=== PATIENT | male | born 1965 | race Caucasian/White ===

== ENCOUNTER 2016-10-10 15:22 | Emergency (ER) | payer OTHER ==
[~2016-10-10] VITALS: Ht 175.3 cm; Wt 140.6 kg
[~2016-10-10 15:22] MED LIST: LOPRESSOR50 MG PO
[2016-10-10 15:25] VITALS: BP 158/62
--- NOTE | 2016-10-10 16:16 | NUR ---
Pt ambulated to bed 8.
--- NOTE | 2016-10-10 16:33 | NUR ---
50/M presents to the ED for evaluation of left shoulder pain while working. Pt states "I was lifting a very heavy door and trying to put it down and I heard something pop and I didn't want to drop the door so I put it down." Pt c/o aching, non radiating, constant, 2/10 pain. Pt has limited ROM d/t pain. Pt complains of worsening pain with abduction of left shouldler. Pt is AOX4, ambulatory with steady gait. VSS. Pt is calm and relaxed at this time. No visible signs of distress noted.
--- NOTE | 2016-10-10 16:35 | NUR ---
Note undone in EDM - 10/10/16 at 1641 by [facility] PATIENT PRESENTS TO ED WITH LEFT SHOULDER PAIN AFTER LIFTING UP DOOR. PT HEARD POPPING NOISE . PT STATES IT HAPPEN 1 HR 3O MINS AGO. DENIES N/V/D; SKIN IS PINK/WARM/DRY; AAOX4 WITH EVEN AND STEADY GAIT; LUNGS CLEAR BL; HR EVEN AND REGULAR; PT DENIES ANY FEVER, CP, SOB, OR COUGH AT THIS TIME; PATIENT STATES PAIN OF 10/10 AT THIS TIME;PT HAS A HX OF HTN.POSITIONED FOR COMFORT; HOB ELEVATED; BEDRAILS UP X2; BED DOWN. SAFETY PRECAUTION INSTITUTED. NEEDS ATTENDED.ER MADE AWARE OF PT STATUS.
--- NOTE | 2016-10-10 16:40 | NUR ---
I asked the patient if he wanted a Toradol injection for pain per Dr. Lund request and patient declined injection at this time. Patient states "No i'm okay. I'm good," Dr. Lund made aware.
--- NOTE | 2016-10-10 16:41 | NUR ---
PATIENT PRESENTS TO ED WITH LEFT SHOULDER PAIN AFTER LIFTING UP DOOR. PT HEARD POPPING NOISE . PT STATES IT HAPPEN 1 HR 3O MINS AGO. DENIES N/V/D; SKIN IS PINK/WARM/DRY; AAOX4 WITH EVEN AND STEADY GAIT; LUNGS CLEAR BL; HR EVEN AND REGULAR; PT DENIES ANY FEVER, CP, SOB, OR COUGH AT THIS TIME; PATIENT STATES PAIN 2/10 IF LEFT SHOULDER IS NOT BEING MOVE AND PAIN OF 10/10 IF SHOULDER IS MOVED;PT HAS A HX OF HTN.POSITIONED FOR COMFORT; HOB ELEVATED; BEDRAILS UP X2; BED DOWN. SAFETY PRECAUTION INSTITUTED. NEEDS ATTENDED.ER MD MADE AWARE OF PT STATUS.
--- NOTE | 2016-10-10 17:40 | NUR ---
PT IS SITTING ON BED COMFORTABLY. NO ACUTE DISTRESS NOTED AT THIS TIME.PT IS GETTING IMPATIENT BUT IN A CALM MANNER. EXPLAINED TO PT THAT ER DR IS BUSY RIGHT NOW DUE TO HIGH VOLUME OF PT. PT DEMONSTRATE UNDERSTANDING. OFFERERED SOME JUICE AND WATER. PT STATES "I'M GOOD".WILL CONTINUE TO MONITOR PT.
--- NOTE | 2016-10-10 18:09 | NUR ---
Patient being evaluated by physician at bedside.
--- NOTE | 2016-10-10 18:24 | NUR ---
Patient discharged with v/s stable. Written and verbal after care instructions explained. Patient verbalized understanding but refused to take discharge summary instruction with him . Pt is upset due to long waiting period in er. Expalined to Pt that the ER Dr is so busy because of high volume of pt to attend to.PT is calm.Ambulatory with steady gait. All questions addressed prior to discharge. Advised to follow up with PMD. advised Pt to put cold/ice compress on left shoulder for 15 to 20 mins for 2- 3 days and Pt agreed with it.
[2016-10-10 18:29] VITALS: BP 128/79
== END 2016-10-10 18:24 | disposition home or self-care (01) ==
LOC: MED 15:22
DX: S43.402A Unspecified sprain of left shoulder joint, initial encounter (principal); I10 Essential (primary) hypertension; X58.XXXA Exposure to other specified factors, initial encounter; Y93.89 Activity, other specified; Y92.89 Other specified places as the place of occurrence of the external cause; Y99.8 Other external cause status

== ENCOUNTER 2017-12-18 16:01 | Emergency (ER) | payer OTHER ==
[~2017-12-18] VITALS: Ht 175.3 cm; Wt 126.6 kg
[~2017-12-18 16:01] MED LIST changes: -LOPRESSOR50 MG PO; +METO-50 PO
[2017-12-18 16:08] VITALS: BP 131/75
[2017-12-18 17:58] LABS: BASOPHILS # (AUTO) 0.1 K/uL (0.00-0.22); BASOPHILS % (AUTO) 0.5 % (0.0-2.0); EOSINOPHILS # (AUTO) 0.1 K/uL (0-0.4); EOSINOPHILS % (AUTO) 1.2 % (0.0-4.0); HEMOGLOBIN 16.1 g/dL (12.0-18.0); LYMPHOCYTES # (AUTO) 1.7 K/uL (2.0-11.5); LYMPHOCYTES % (AUTO) 15.2 % (20.5-51.1); MEAN CORPUSCULAR HEMOGLOBIN 29 pg (27-31); MEAN CORPUSCULAR HGB CONC 34 g/dL (33-37); MEAN CORPUSCULAR VOLUME 85.8 fL (80-94); MONOCYTES # (AUTO) 0.8 K/uL (0.8-1.0); MONOCYTES % (AUTO) 6.8 % (1.7-9.3); NEUTROPHILS # (AUTO) 8.5 K/uL (1.8-7.7); NEUTROPHILS % (AUTO) 76.3 % (42.2-75.2); PLATELET COUNT (AUTO) 229 K/uL (140-450); RED CELL DISTRIBUTION WIDTH 13.7 % (11.6-13.7); WHITE BLOOD COUNT (AUTO) 11.1 K/uL (4.8-10.8)
[2017-12-18 18:00] LABS: ANION GAP 12.5 (8-16); CARBON DIOXIDE 28.4 mmol/L (21-32); CREATININE 1.1 mg/dL (0.7-1.3); POTASSIUM 3.9 mmol/L (3.5-5.1)
[2017-12-18 18:06] LABS: ALBUMIN 3.6 g/dL (3.4-5.0); TOTAL BILIRUBIN 0.9 mg/dL (0.0-1.0)
[2017-12-18 18:24] LABS: PROTHROMBIN TIME 11.1 secs (10.8-13.4)
[2017-12-18 19:30] VITALS: BP 134/78
== END 2017-12-18 19:30 | disposition home or self-care (01) ==
LOC: MED 16:01
DX: K57.92 Diverticulitis of intestine, part unspecified, without perforation or abscess without bleeding (principal); I10 Essential (primary) hypertension
CPT/HCPCS: 36415; 80053; 81002; 83605; 85025; 85610; 87040; 99285

== ENCOUNTER 2018-06-03 23:50 | Emergency (ER) | payer OTHER ==
[~2018-06-03] VITALS: Ht 175.3 cm; Wt 136.1 kg
[2018-06-03 23:56] VITALS: BP 120/80
[2018-06-04 00:24] VITALS: BP 122/85
== END 2018-06-04 00:26 | disposition home or self-care (01) ==
LOC: MED 23:50
DX: R00.2 Palpitations (principal); F41.9 Anxiety disorder, unspecified; M79.605 Pain in left leg; I10 Essential (primary) hypertension; Z79.899 Other long term (current) drug therapy
CPT/HCPCS: 93005; 99283

== ENCOUNTER 2018-08-28 01:06 | Emergency (ER) | payer OTHER ==
[~2018-08-28] VITALS: Ht 175.3 cm; Wt 136.1 kg
[2018-08-28 01:21] VITALS: BP 149/85
[2018-08-28 04:06] LABS: ALBUMIN 3.6 g/dL (3.4-5.0); CARBON DIOXIDE 26.3 mmol/L (21-32); CREATININE 1.2 mg/dL (0.7-1.3); POTASSIUM 4.3 mmol/L (3.5-5.1); TOTAL BILIRUBIN 0.8 mg/dL (0.0-1.0)
[2018-08-28 04:13] LABS: BASOPHILS % (AUTO) 0.4 % (0.0-2.0); EOSINOPHILS # (AUTO) 0.2 K/uL (0-0.4); EOSINOPHILS % (AUTO) 1.9 % (0.0-4.0); HEMATOCRIT 46.2 % (36-52); HEMOGLOBIN 15.2 g/dL (12.0-18.0); LYMPHOCYTES # (AUTO) 1.8 K/uL (2.0-11.5); LYMPHOCYTES % (AUTO) 17.9 % (20.5-51.1); MEAN CORPUSCULAR HEMOGLOBIN 29 pg (27-31); MEAN CORPUSCULAR HGB CONC 33 g/dL (33-37); MEAN CORPUSCULAR VOLUME 87.5 fL (80-94); MONOCYTES # (AUTO) 0.8 K/uL (0.8-1.0); MONOCYTES % (AUTO) 7.6 % (1.7-9.3); NEUTROPHILS # (AUTO) 7.4 K/uL (1.8-7.7); NEUTROPHILS % (AUTO) 72.2 % (42.2-75.2); PLATELET COUNT (AUTO) 208 K/uL (140-450); RED BLOOD CELL COUNT(AUTO) 5.28 MIL/uL (4.20-6.10); RED CELL DISTRIBUTION WIDTH 13.5 % (11.6-13.7); WHITE BLOOD COUNT (AUTO) 10.2 K/uL (4.8-10.8)
[2018-08-28] MEDS ORDERED: ONDANSETRON 4 MG/2 ML VIAL IVP ONE (04:35)
[2018-08-28] MEDS ORDERED: NACL 0.9% 1,000 ML IV ONE (04:35)
[2018-08-28] MEDS ORDERED: LEVOFLOXACIN 500 MG/D5W PREMIX 100 ML IV ONE (04:35)
[2018-08-28] MEDS ORDERED: MORPHINE SULFATE 4 MG/ML SYR IVP ONE (04:35)
[2018-08-28 06:28] VITALS: BP 134/57
[2018-08-28 09:40] LABS: APPEARANCE,URINE CLEAR (CLEAR); BILIRUBIN,URINE NEGATIVE (NEGATIVE); BLOOD, URINE NEGATIVE (NEGATIVE); COLOR,URINE YELLOW (YELLOW); LEUKOCYTE ESTERASE ,URINE NEGATIVE (NEGATIVE); NITRITE, URINE NEGATIVE (NEGATIVE); UGLUCOSE NEGATIVE (NEGATIVE)
== END 2018-08-28 06:28 | disposition home or self-care (01) ==
LOC: MED 01:06
DX: K57.92 Diverticulitis of intestine, part unspecified, without perforation or abscess without bleeding (principal); I10 Essential (primary) hypertension; Z79.899 Other long term (current) drug therapy
CPT/HCPCS: 36415; 74176; 80053; 81003; 83690; 85025; 96365; 99284; J1956; J2270; J2405

== ENCOUNTER 2020-04-08 14:59 | Observation (INO) | payer OTHER ==
[~2020-04-08] VITALS: Ht 175.3 cm; Wt 135.2 kg
[~2020-04-08 14:59] MED LIST changes: +METO-251 PO; -METO-50 PO
[2020-04-08 15:09] VITALS: BP 154/92
--- NOTE | 2020-04-08 15:20 | NUR ---
PT C/O PRESSURE LIKE STERNAL CHEST PAIN W/O RADIATION, 7/10 ON PAIN INTENSITY, RADIATING TO THE UPPER CHEST AREA, BREATHING EXACERBATES THE PAIN, NOTHING ALLEVIATES SINCE 10:00 AM TODAY. DENIES TRAUMA, NO PAIN WHEN PRESSING CHEST. PT TOOK TUMS WITH NO RELIEF. DENIES N/V/D; SKIN IS PINK/WARM/DRY; AAOX4 WITH EVEN AND STEADY GAIT; LUNGS CLEAR BL; HR EVEN AND REGULAR; PT DENIES ANY FEVER, SOB, OR COUGH AT THIS TIME; PATIENT STATES PAIN OF 7/10 AT THIS TIME; VSS; PATIENT POSITIONED FOR COMFORT; HOB ELEVATED; BEDRAILS UP X2; BED DOWN. ER MD MADE AWARE OF PT STATUS.
--- NOTE | 2020-04-08 15:22 | NUR ---
Dr. Peña is evaluating the patient at bedside.
[2020-04-08] MEDS ORDERED: ASPIRIN 325 MG TAB PO ONE (15:35)
[2020-04-08] MEDS: NITROGLYCERIN 0.4 MG TAB SL ONE ×2 (16:06→17:02)
--- NOTE | 2020-04-08 16:40 | NUR ---
PT IS RESTING IN THE BED. LAB IS AT BEDSIDE.
--- NOTE | 2020-04-08 16:55 | NUR ---
PT STATES HE WENT TO THE BATHROOM AND THE CHEST PAIN CAME BACK ON INTENSITY OF 3/10 WITH PRESSURE SENSATION ON THE STERNAL AREA. DR. LOBATO MADE AWARE.
[2020-04-08 17:00] LABS: BASOPHILS # (AUTO) 0.1 K/uL (0.00-0.22); BASOPHILS % (AUTO) 0.8 % (0.0-2.0); EOSINOPHILS # (AUTO) 0.1 K/uL (0-0.4); EOSINOPHILS % (AUTO) 1.2 % (0.0-4.0); HEMATOCRIT 47.2 % (36-52); HEMOGLOBIN 15.8 g/dL (12.0-18.0); LYMPHOCYTES # (AUTO) 1.6 K/uL (2.0-11.5); LYMPHOCYTES % (AUTO) 16.7 % (20.5-51.1); MEAN CORPUSCULAR HEMOGLOBIN 29 pg (27-31); MEAN CORPUSCULAR HGB CONC 34 g/dL (33-37); MEAN CORPUSCULAR VOLUME 87.6 fL (80-94); MONOCYTES # (AUTO) 0.7 K/uL (0.8-1.0); MONOCYTES % (AUTO) 6.9 % (1.7-9.3); NEUTROPHILS # (AUTO) 7.3 K/uL (1.8-7.7); NEUTROPHILS % (AUTO) 74.4 % (42.2-75.2); PLATELET COUNT (AUTO) 227 K/uL (140-450); RED BLOOD CELL COUNT(AUTO) 5.39 MIL/uL (4.20-6.10); RED CELL DISTRIBUTION WIDTH 13.9 % (11.6-13.7); WHITE BLOOD COUNT (AUTO) 9.8 K/uL (4.8-10.8)
[2020-04-08] MEDS ORDERED: NITROGLYCERIN 0.4 MG TAB SL ONE (17:01)
--- NOTE | 2020-04-08 17:07 | NUR ---
PT STATES AFTER THE FIRST DOSE OF NITROSTAT HIS PRESSURE-LIKE CP IS GETTING BETTER BUT HE CAN STILL FEEL THE PAIN AND HE WANTS TO TRY THE SECOND DOSE OF NITROSTAT.
[2020-04-08 17:13] LABS: ALBUMIN 3.9 g/dL (3.4-5.0); ANION GAP 11.9 (8-16); CARBON DIOXIDE 27.2 mmol/L (21-32); CREATININE 1.1 mg/dL (0.6-1.3); POTASSIUM 4.1 mmol/L (3.5-5.1); TOTAL BILIRUBIN 0.8 mg/dL (0.0-1.0)
[2020-04-08 17:24] LABS: CREATINE KINASE MB 0.8 ng/mL (0-3.6)
--- NOTE | 2020-04-08 17:56 | NUR ---
DR. LOBATO IS EVALUATING PT AT BEDSIDE.
--- NOTE | 2020-04-08 19:17 | NUR ---
report gave to ashleigh cota. transfer of care at this time.
--- NOTE | 2020-04-08 19:20 | NUR ---
RECEIVED REPORT FROM GREGORY YEPEZ
--- NOTE | 2020-04-08 19:33 | NUR ---
PT C/O INDIGESTION TYPE PAIN TO STERNAL AREA AFTER EATING DINNER. MD GLOVER AWARE, NEW ORDER RECEIVED. PT IS RESTING, DENIES ANY CHEST PAIN OR PRESSURE. NO SOB. PT REMAINS ON BEDSIDE MONITOR.
[2020-04-08] MEDS ORDERED: DICYCLOMINE HCL LIQUID 20 MG, ALUMINUM HYD/MAG/SIMETHICONE 30 ML, LIDOCAINE VISCOUS 2% ... PO ONE ×3 (19:35)
[2020-04-08] MEDS ORDERED: ALUMINUM HYD/MAG/SIMETHICONE 30 ML UDC ONE (19:50)
[2020-04-08] MEDS ORDERED: DICYCLOMINE HCL LIQUID 10 MG/5 ML UDC ONE (19:50)
[2020-04-08] MEDS ORDERED: LIDOCAINE VISCOUS 2% 20 ML UDC ONE (19:50)
[2020-04-08] MEDS ORDERED: VALS80TA2 PO (20:02)
[2020-04-08 20:25] VITALS: BP 125/62
--- NOTE | 2020-04-08 20:30 | NUR ---
PT RECEIVED FROM ER DEPARTMENT. PT IS STABLE CONDITION, COMMUNICATES APPROPRIATELY. AOX4, RESPIRATION EVEN AND UNLABORED. V/S: 97.8, 85, 20, 125/62, 96 % RA DENIES PAIN 0/10 AT THIS TIME. SKIN CHECK DONE AND SKIN INTACT. HAS RIGHT AC WITH 20G SALINE LOCK. PT ORIENTED TO ROOM AND EDUCATED ON S/S TO REPORT. MRSA SWAB COLLECTED AND ROUTED TO LAB. WILL CONTINUE TO MONITOR.
--- NOTE | 2020-04-08 20:34 | NUR ---
Patient will be admitted to care of [facility]. Admited to TELE. Will go to room 112A. Belongings list completed. Report to VICKIE YEPEZ.
[2020-04-08] MEDS ORDERED: ACETAMINOPHEN 325 MG TAB PO PRN (21:10)
[2020-04-08] MEDS ORDERED: HYDROcodone/APAP 5/325 MG 1 TAB TAB PO PRN (21:10)
[2020-04-08] MEDS ORDERED: ONDANSETRON 4 MG/2 ML VIAL IVP PRN (21:10)
[2020-04-08] MEDS ORDERED: MORPHINE SULFATE 4 MG/ML SYR IVP PRN (21:10)
--- NOTE | 2020-04-08 22:35 | NUR ---
PT LAYING I BED SEMI-FOWLERS POSITION. IN NO DISTRESS. RESPIRATION EVEN AND UNLABORED. AMBULATES TO RESTROOM WITH NO ASSISTANCE. PT HAS BLOOD DRAWN FOR TROPONIN LEVEL AT 2200. AWAITING RESULTS.
[2020-04-09] VITALS: BP 106/71
--- NOTE | 2020-04-09 00:21 | NUR ---
PT REPORTED MIDSTERNAL NON-RADIATING CHEST PAIN 12/10. STATED IT STARTED WHILE WATCHING TV. PAIN NOT RELATED TO ACTIVITY OR EATING. DENIES ANY SOB NO COUGH . PT WAS GIVEN NORCO FOR PAIN AT 0011. PT EDUCATED ON REPORTING WORSENING SYMPTOMS. PT REMAINS ON CARDIAC MONITORING. WILL CONTINUE TO MONITOR.
--- NOTE | 2020-04-09 01:24 | NUR ---
PT RESTING IN BED CURRENTLY DENIES ANY PAIN, "PAIN IS GONE BUT IT WAS VERY STRONG. IT COMES ON VERY FAST AND STRONG." RESPIRATION EVEN AND UNLABORED. IN NO DISTRESS. CALL LIGHT WITHIN REACH EDUCATED ON S/S TO REPORT TO NURSING STAFF. WILL CONTINUE TO MONITOR.
--- NOTE | 2020-04-09 02:30 | NUR ---
PT RESTING IN BED WITH EYES CLOSED. RESPIRATION EVEN AND UNLABORED. WILL CONTINUE TO MONITOR.
[2020-04-09 04:00] VITALS: BP 110/58
--- NOTE | 2020-04-09 04:05 | NUR ---
PT RESTING IN BED, ASLEEP RIGHT LATERAL SIDE. EASILY AROUSABLE DENIES ANY DISTRESS AT THIS TIME. STATES HE IS SLEEPING WELL REPORTS PAIN IS INTERMITTENT AT TIMES AND REPORTS PAIN SHIFTY TO THE LEFT. PT VERBALIZING CONCERN REGARDING SYMPTOMS. PT EDUCATED ON SYMPTOMS TO REPORT. CURRENTLY NO PAIN. V/S: 97.6, 63, 20, 110/58, 99 % RA. ALL NEEDS ARE MET AT THIS TIME. WILL CONTINUE TO MONITOR
--- NOTE | 2020-04-09 06:26 | NUR ---
DURING ROUNDS PT IS OBSERVED TO BE LAYING IN BED, AWAKE WATCHING TV. CURRENTLY DENIES ANY PAIN OR DISCOMFORT. REPORTED HE DID NOT SLEEP WELL BUT AT THIS TIME ALL NEEDS ARE MET. PT HAD BLOOD DRAW AT 0600. CALL LIGHT WITHIN REACH. SAFETY MEASURES IN PLACE. WILL CONTINUE TO MONITOR.
--- NOTE | 2020-04-09 06:39 | NUR ---
PATIENT HAS BEEN SCREENED AND CATEGORIZED HIGH NUTRITION RISK. PATIENT WILL BE SEEN WITHIN 1-2 DAYS OF ADMISSION. 04/10/20-04/11/20 ZHANNA BLAKELY MS, RDN
--- NOTE | 2020-04-09 07:05 | NUR ---
RECEIVED REPORT FROM NIGHT NURSE FOR CONTINUITY OF CARE, PT IS STABLE, PT AAOX4, OCCITAN SPEAKING, NO SIGNS OF DISTRESS NOTED, RESPIRATIONS ARE EVEN AND UNLABORED ON ROOM AIR, PT HAS RIGHT FA 22G SALINE LOCK, INTRODUCE SELF, UPDATED WHITEBOARD, BED IN LOW POSITION, SAFETY MEASURES IN PLACE, CALL LIGHT WITHIN REACH.
[2020-04-09 07:08] LABS: BASOPHILS % (AUTO) 0.4 % (0.0-2.0); EOSINOPHILS # (AUTO) 0.1 K/uL (0-0.4); EOSINOPHILS % (AUTO) 1.2 % (0.0-4.0); HEMOGLOBIN 14.8 g/dL (12.0-18.0); LYMPHOCYTES # (AUTO) 1.6 K/uL (2.0-11.5); LYMPHOCYTES % (AUTO) 20.6 % (20.5-51.1); MEAN CORPUSCULAR HEMOGLOBIN 30 pg (27-31); MEAN CORPUSCULAR HGB CONC 34 g/dL (33-37); MEAN CORPUSCULAR VOLUME 87.9 fL (80-94); MONOCYTES # (AUTO) 0.7 K/uL (0.8-1.0); MONOCYTES % (AUTO) 9.5 % (1.7-9.3); NEUTROPHILS # (AUTO) 5.3 K/uL (1.8-7.7); NEUTROPHILS % (AUTO) 68.3 % (42.2-75.2); PLATELET COUNT (AUTO) 199 K/uL (140-450); RED CELL DISTRIBUTION WIDTH 14.1 % (11.6-13.7); WHITE BLOOD COUNT (AUTO) 7.7 K/uL (4.8-10.8)
--- NOTE | 2020-04-09 07:15 | NUR ---
BEDSIDE REPORT GIVEN TO AM RN FOR CONTINUITY OF CARE. PT IS STABLE
[2020-04-09 07:24] LABS: ANION GAP 11.3 (8-16); CARBON DIOXIDE 28.8 mmol/L (21-32); POTASSIUM 4.1 mmol/L (3.5-5.1)
[2020-04-09 08:00] VITALS: BP 134/73
--- NOTE | 2020-04-09 08:19 | NUR ---
ADMINISTERED SCHEDULED MEDICATION, MEDICATION EDUCATION GIVEN, PT VERBALIZED UNDERSTANDING, PT TOLERATED WELL, PT IS STABLE, NO SIGNS OF DISTRESS NOTED, CALL LIGHT WITHIN REACH.
[2020-04-09] MEDS ORDERED: VALSARTAN 80 MG TAB PO SCH (09:00)
[2020-04-09 09:51] LABS: MAGNESIUM 1.8 mg/dL (1.8-2.4); PHOSPHORUS 3.9 mg/dL (2.5-4.9)
--- NOTE | 2020-04-09 11:30 | NUR ---
PT RESTING IN BED, NO SIGNS OF DISTRESS NOTED, PT IS STABLE, CALL LIGHT WITHIN REACH
[2020-04-09 12:00] VITALS: BP 129/58
[2020-04-09] MEDS ORDERED: VALS80TA2 PO (13:25)
[2020-04-09] MEDS ORDERED: HYDR1TAB70 PO (13:25)
--- NOTE | 2020-04-09 13:50 | NUR ---
PT DISCHARGED HOME, DISCHARGE INSTRUCTIONS GIVEN, PT VERBALIZED UNDERSTANDING, IV REMOVED, PNA AND FLU NOT APPLICABLE. PT WALKED TO FRONT LOBBY WITH STEADY GAIT, NO SIGNS OF DISTRESS NOTED, PT STABLE
== END 2020-04-09 14:00 | disposition home or self-care (01) ==
LOC: MED 14:59 → MTU 19:15 → INTOOBSV 19:15 → MMU 19:55 → MTU 20:25
PROVIDERS: ADMIT Internal Medicine Pulmonary Disease; ATTEND Internal Medicine Pulmonary Disease
DX: R07.89 Other chest pain (principal); I10 Essential (primary) hypertension; E66.9 Obesity, unspecified; Z79.82 Long term (current) use of aspirin; Z79.899 Other long term (current) drug therapy; Z91.030 Bee allergy status; Z68.41 Body mass index [BMI] 40.0-44.9, adult
CPT/HCPCS: 36415; 71045; 80048; 80053; 82550; 82553; 83690; 83735; 84100; 84484; 85025; 85379; 87081; 99284; G0378; Q0092; 99285

== ENCOUNTER 2020-09-27 14:50 | Emergency (ER) | payer OTHER ==
[~2020-09-27] VITALS: Ht 175.3 cm; Wt 126.1 kg
[~2020-09-27 14:50] MED LIST changes: +HYDR1TAB70 PO; -METO-251 PO; +VALS80TA2 PO
[2020-09-27 15:01] VITALS: BP 158/96
--- NOTE | 2020-09-27 15:44 | NUR ---
54 Y/O MALE PATIENT C/O WITH HTN. PATIENT STATED THIS MORNING HE HAD A NORMAL BP, BUT AFTER WOKE UP FROM NAP AT 1400, HIS BP WAS HIGH. PT CAME IN WITH 156/96 BP, NO CHEST PAIN AT THIS MOMENT, BUT PERIPHERAL VISION IS DESCRIBED "PULSATING". PT FELT LIGHT HEADED. CLEAR LUNGS BILTAERALLY, NORMAL HEART SOUNDS NO S3, S4. 3 DAYS AGO PT STATED HE HAD CHEST PAIN AND IT COMES AND GOES. TAKES VALSARTAN 80MG 1 TAB PO AM. LAST DOSE WAS AT 0700 TODAY. VITALS DURING ASSESSMENT WERE 137/79, PULSE 104, 95% ON ROOM AIR ,19 RR. PT ASLO STATED HE HAS BEEN AROUND OTHERS WHO HAVE TESTED POSTIVE FOR COVID AT WORK. NO COUGH, SOB COMES AND GOES. NKDA OTHER THAN BEES. NO OTHER MEDICAL HX. PT WAS PUT ON MONITOR FOR HEART, BP, AND OXYGEN.
--- NOTE | 2020-09-27 16:13 | NUR ---
URINE WAS COLLECTED, COVID NOVEL SAMPLE WAS TAKEN AND DROPPED OFF AT LAB, LABS ARE BEING DRAWN.
[2020-09-27 16:34] LABS: BASOPHILS # (AUTO) 0.1 K/uL (0.00-0.22); BASOPHILS % (AUTO) 0.6 % (0.0-2.0); EOSINOPHILS % (AUTO) 0.5 % (0.0-4.0); HEMATOCRIT 43.6 % (36-52); HEMOGLOBIN 14.6 g/dL (12.0-18.0); LYMPHOCYTES # (AUTO) 0.9 K/uL (2.0-11.5); LYMPHOCYTES % (AUTO) 10.4 % (20.5-51.1); MEAN CORPUSCULAR HEMOGLOBIN 29 pg (27-31); MEAN CORPUSCULAR HGB CONC 34 g/dL (33-37); MEAN CORPUSCULAR VOLUME 87.2 fL (80-94); MONOCYTES # (AUTO) 0.5 K/uL (0.8-1.0); NEUTROPHILS # (AUTO) 7.1 K/uL (1.8-7.7); NEUTROPHILS % (AUTO) 82.5 % (42.2-75.2); PLATELET COUNT (AUTO) 209 K/uL (140-450); RED CELL DISTRIBUTION WIDTH 13.4 % (11.6-13.7); WHITE BLOOD COUNT (AUTO) 8.6 K/uL (4.8-10.8)
[2020-09-27 16:36] LABS: APPEARANCE,URINE CLEAR (CLEAR); BILIRUBIN,URINE NEGATIVE (NEGATIVE); BLOOD, URINE TRACE-I (NEGATIVE); COLOR,URINE YELLOW (YELLOW); LEUKOCYTE ESTERASE ,URINE NEGATIVE (NEGATIVE); NITRITE, URINE NEGATIVE (NEGATIVE); UGLUCOSE NEGATIVE (NEGATIVE)
[2020-09-27 16:43] LABS: RBC,URINE 0-5 /HPF (0-5); WBC,URINE 0-5 /HPF (0-5)
[2020-09-27 16:50] LABS: ALBUMIN 3.8 g/dL (3.4-5.0); ANION GAP 13.8 (8-16); CARBON DIOXIDE 24.9 mmol/L (21-32); CREATININE 1.2 mg/dL (0.6-1.3); POTASSIUM 3.7 mmol/L (3.5-5.1)
--- NOTE | 2020-09-27 17:48 | NUR ---
Patient discharged with v/s stable. Written and verbal after care instructions given and explained. Patient verbalized understanding. Ambulatory with steady gait. All questions addressed prior to discharge. Advised to follow up with PMD.
[2020-09-27 17:50] VITALS: BP 122/74
== END 2020-09-27 17:47 | disposition home or self-care (01) ==
LOC: MED 14:50
DX: R00.2 Palpitations (principal); I10 Essential (primary) hypertension; Z79.899 Other long term (current) drug therapy; Z20.828 Contact with and (suspected) exposure to other viral communicable diseases
CPT/HCPCS: 71045; 80053; 81001; 83880; 84443; 84484; 85025; 93005; 99285; U0003

== ENCOUNTER 2020-11-04 13:14 | Emergency (ER) | payer OTHER ==
[~2020-11-04] VITALS: Ht 175.3 cm; Wt 125.6 kg
[2020-11-04 13:16] VITALS: BP 139/61
[2020-11-04] MEDS ORDERED: LORazepam 0.5 MG TAB PO ONE (13:40)
[2020-11-04 14:14] LABS: BASOPHILS % (AUTO) 0.3 % (0.0-2.0); EOSINOPHILS % (AUTO) 0.4 % (0.0-4.0); HEMATOCRIT 44.3 % (36-52); HEMOGLOBIN 15.1 g/dL (12.0-18.0); LYMPHOCYTES # (AUTO) 1.4 K/uL (2.0-11.5); LYMPHOCYTES % (AUTO) 13.6 % (20.5-51.1); MEAN CORPUSCULAR HEMOGLOBIN 29 pg (27-31); MEAN CORPUSCULAR HGB CONC 34 g/dL (33-37); MEAN CORPUSCULAR VOLUME 86.1 fL (80-94); MONOCYTES # (AUTO) 0.6 K/uL (0.8-1.0); MONOCYTES % (AUTO) 5.6 % (1.7-9.3); NEUTROPHILS # (AUTO) 8.5 K/uL (1.8-7.7); NEUTROPHILS % (AUTO) 80.1 % (42.2-75.2); PLATELET COUNT (AUTO) 228 K/uL (140-450); RED BLOOD CELL COUNT(AUTO) 5.14 MIL/uL (4.20-6.10); RED CELL DISTRIBUTION WIDTH 13.7 % (11.6-13.7); WHITE BLOOD COUNT (AUTO) 10.6 K/uL (4.8-10.8)
[2020-11-04 14:29] LABS: ALBUMIN 3.7 g/dL (3.4-5.0); ANION GAP 13.9 (8-16); CARBON DIOXIDE 26.9 mmol/L (21-32); CREATININE 1.3 mg/dL (0.6-1.3); POTASSIUM 3.8 mmol/L (3.5-5.1); TOTAL BILIRUBIN 1.1 mg/dL (0.0-1.0)
[2020-11-04] MEDS ORDERED: HYDR25CA10 PO (15:28)
[2020-11-04 15:35] VITALS: BP 125/65
[2020-11-05 05:12] LABS: BARBITURATE, URINE NEGATIVE ng/ml (NEG <=200); BENZODIAZEPINE, URINE NEGATIVE ng/mL (NEG <=200); CANNABINOID, URINE NEGATIVE ng/mL (NEG <=50); COCAINE, URINE NEGATIVE ng/mL (NEG <=300); OPIATE, URINE NEGATIVE ng/mL (NEG <=2000); PHENCYCLIDINE SCREEN,URINE NEGATIVE ng/mL (NEG <=25)
== END 2020-11-04 15:35 | disposition home or self-care (01) ==
LOC: MED 13:14
DX: F41.9 Anxiety disorder, unspecified (principal); R00.2 Palpitations; I10 Essential (primary) hypertension; Z79.899 Other long term (current) drug therapy; Z91.030 Bee allergy status
CPT/HCPCS: 36415; 80053; 80305; 81002; 85025; 93005; 99284

== ENCOUNTER 2021-04-15 00:07 | Emergency (ER) | payer OTHER ==
[~2021-04-15] VITALS: Ht 175.3 cm; Wt 102.5 kg
[~2021-04-15 00:07] MED LIST changes: +HYDR25CA10 PO
[2021-04-15 00:15] VITALS: BP 145/75
--- NOTE | 2021-04-15 00:45 | NUR ---
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 denies cp. c/o of funny feeling when he breathes in. pt arrives from triage from home ambulatory steadygait.
[2021-04-15 01:03] LABS: ALBUMIN 3.6 g/dL (3.4-5.0); ANION GAP 11.4 (8-16); CARBON DIOXIDE 27.5 mmol/L (21-32); CREATININE 1.1 mg/dL (0.6-1.3); POTASSIUM 3.9 mmol/L (3.5-5.1); TOTAL BILIRUBIN 0.9 mg/dL (0.0-1.0)
[2021-04-15 01:30] LABS: BASOPHILS # (AUTO) 0.1 K/uL (0.00-0.22); BASOPHILS % (AUTO) 0.7 % (0.0-2.0); EOSINOPHILS # (AUTO) 0.2 K/uL (0-0.4); EOSINOPHILS % (AUTO) 2.1 % (0.0-4.0); HEMATOCRIT 46.7 % (36-52); HEMOGLOBIN 15.8 g/dL (12.0-18.0); LYMPHOCYTES # (AUTO) 1.7 K/uL (2.0-11.5); LYMPHOCYTES % (AUTO) 23.4 % (20.5-51.1); MEAN CORPUSCULAR HEMOGLOBIN 29 pg (27-31); MEAN CORPUSCULAR HGB CONC 34 g/dL (33-37); MEAN CORPUSCULAR VOLUME 86.7 fL (80-94); MONOCYTES # (AUTO) 0.7 K/uL (0.8-1.0); MONOCYTES % (AUTO) 9.2 % (1.7-9.3); NEUTROPHILS # (AUTO) 4.6 K/uL (1.8-7.7); NEUTROPHILS % (AUTO) 64.6 % (42.2-75.2); PLATELET COUNT (AUTO) 210 K/uL (140-450); RED BLOOD CELL COUNT(AUTO) 5.38 MIL/uL (4.20-6.10); RED CELL DISTRIBUTION WIDTH 13.5 % (11.6-13.7); WHITE BLOOD COUNT (AUTO) 7.2 K/uL (4.8-10.8)
--- NOTE | 2021-04-15 03:03 | NUR ---
Patient appears to be resting comfortably in bed. Vital Signs within normal limits. Respirations even and unlabored. awaits dispo
[2021-04-15 03:50] VITALS: BP 117/54
--- NOTE | 2021-04-15 03:50 | NUR ---
Patient discharged with v/s stable. Written and verbal after care instructions given and explained. Patient verbalized understanding. Ambulatory with steady gait. All questions addressed prior to discharge. Advised to follow up with PMD. ID band removed.
== END 2021-04-15 03:50 | disposition home or self-care (01) ==
LOC: MED 00:07
DX: R00.2 Palpitations (principal); R03.0 Elevated blood-pressure reading, without diagnosis of hypertension; Z98.890 Other specified postprocedural states
CPT/HCPCS: 36415; 71045; 80053; 83880; 84484; 85025; 93005; 99285

== ENCOUNTER 2022-05-07 10:24 | Emergency (ER) | payer OTHER ==
[~2022-05-07] VITALS: Ht 175.3 cm; Wt 127.0 kg
[2022-05-07 10:39] VITALS: BP 157/83
--- NOTE | 2022-05-07 10:42 | NUR ---
TENT 1.
--- NOTE | 2022-05-07 10:45 | NUR ---
BIB SELF C/O COUGH, VAZQUEZ,SORE THROAT , MID CHEST PAIN WHILE COUGHING X 2 DAYS. COVID TESTED + TODAY. PMH: HTN
[2022-05-07] MEDS ORDERED: BENZ150C2 PO (11:52)
[2022-05-07] MEDS ORDERED: ALBU0.0912 IH (11:52)
[2022-05-07] MEDS ORDERED: BENZ-300 PO (11:52)
--- NOTE | 2022-05-07 12:20 | NUR ---
JAC, FLU SWABS DONE.
[2022-05-07 12:22] VITALS: BP 132/78
--- NOTE | 2022-05-07 12:22 | NUR ---
Patient discharged with v/s stable. Written and verbal after care instructions given and explained. Patient alert, oriented and verbalized understanding of instructions. Ambulatory with steady gait. All questions addressed prior to discharge. ID band removed. Patient advised to follow up with PMD. Rx of ALBUTEROL SULFATE, BENZOCAINE/MENTAL &BENZONANATE given. Patient educated on indication of medication including possible reaction and side effects. Opportunity to ask questions provided and answered.
== END 2022-05-07 12:22 | disposition home or self-care (01) ==
LOC: MED 10:24
DX: B34.9 Viral infection, unspecified (principal); Z20.822 Contact with and (suspected) exposure to COVID-19; I10 Essential (primary) hypertension; Z79.899 Other long term (current) drug therapy
CPT/HCPCS: 71045; 99284

== ENCOUNTER 2023-10-18 01:09 | Emergency (ER) | payer OTHER ==
[~2023-10-18] VITALS: Ht 175.3 cm; Wt 140.2 kg
[~2023-10-18 01:09] MED LIST changes: +ALBU0.0912 IH; +BENZ-300 PO; +BENZ150C2 PO
[2023-10-18 01:21] VITALS: BP 144/77; PULSE 79; RESP 18; TEMP 97.2; O2SAT 98
[2023-10-18 01:52] LABS: BASOPHILS # (AUTO) 0.1 K/uL (0.00-0.22); EOSINOPHILS % (AUTO) 2.3 % (0.0-4.0); MEAN CORPUSCULAR HEMOGLOBIN 29 pg (27-31); RED CELL DISTRIBUTION WIDTH 13.9 % (11.6-13.7)
[2023-10-18 01:53] LABS: BASOPHILS % (AUTO) 0.8 % (0.0-2.0); EOSINOPHILS # (AUTO) 0.3 K/uL (0-0.4); HEMATOCRIT 46.1 % (36-52); HEMOGLOBIN 15.7 g/dL (12.0-18.0); LYMPHOCYTES % (AUTO) 18.8 % (20.5-51.1); MEAN CORPUSCULAR HGB CONC 34 g/dL (33-37); MEAN CORPUSCULAR VOLUME 85.8 fL (80-94); MONOCYTES % (AUTO) 8.9 % (1.7-9.3); NEUTROPHILS # (AUTO) 7.5 K/uL (1.8-7.7); NEUTROPHILS % (AUTO) 69.2 % (42.2-75.2); PLATELET COUNT (AUTO) 218 K/uL (140-450); RED BLOOD CELL COUNT(AUTO) 5.37 MIL/uL (4.20-6.10); WHITE BLOOD COUNT (AUTO) 10.9 K/uL (4.8-10.8)
[2023-10-18 02:08] LABS: ANION GAP 13.3 (8-16); CALCIUM 9.1 mg/dL (8.5-10.1); CARBON DIOXIDE 29.1 mmol/L (21-32); POTASSIUM 4.4 mmol/L (3.5-5.1)
[2023-10-18 02:10] LABS: ALANINE AMINOTRANSFERASE 35 U/L (12-78); ALBUMIN 3.4 g/dL (3.4-5.0); ALKALINE PHOSPHATASE 68 U/L (50-136); ASPARTATE AMINOTRANSFERASE 30 U/L (15-37); BILIRUBIN,DIRECT 0.1 mg/dL (0.0-0.3); TOTAL BILIRUBIN 0.8 mg/dL (0.0-1.0); TOTAL PROTEIN, SERUM 8.6 g/dL (6.4-8.2)
[2023-10-18 05:25] VITALS: BP 124/70; PULSE 62; RESP 18; TEMP 98.3; O2SAT 97
== END 2023-10-18 05:25 | disposition home or self-care (01) ==
LOC: MED 01:09
DX: R07.89 Other chest pain (principal); I10 Essential (primary) hypertension; Z79.899 Other long term (current) drug therapy
CPT/HCPCS: 36415; 71045; 80048; 80076; 83880; 84484; 85025; 85379; 93005; 99285; Q0092

== ENCOUNTER 2023-11-08 15:22 | Emergency (ER) | payer OTHER ==
[~2023-11-08] VITALS: Ht 175.3 cm; Wt 136.1 kg
[2023-11-08 16:02] VITALS: BP 146/87; PULSE 94; RESP 20; TEMP 99.7; O2SAT 100
[2023-11-08 17:55] LABS: FLU A ANTIGEN negative (NEGATIVE); FLU B ANTIGEN NEGATIVE (NEGATIVE)
[2023-11-08 18:05] LABS: BASOPHILS # (AUTO) 0.1 K/uL (0.00-0.22); BASOPHILS % (AUTO) 0.8 % (0.0-2.0); EOSINOPHILS # (AUTO) 0.1 K/uL (0-0.4); EOSINOPHILS % (AUTO) 1.5 % (0.0-4.0); HEMATOCRIT 44.1 % (36-52); HEMOGLOBIN 15.1 g/dL (12.0-18.0); LYMPHOCYTES # (AUTO) 1.2 K/uL (2.0-11.5); MEAN CORPUSCULAR HEMOGLOBIN 29 pg (27-31); MEAN CORPUSCULAR HGB CONC 34 g/dL (33-37); MEAN CORPUSCULAR VOLUME 84.7 fL (80-94); MONOCYTES # (AUTO) 1.1 K/uL (0.8-1.0); MONOCYTES % (AUTO) 12.5 % (1.7-9.3); NEUTROPHILS # (AUTO) 6.5 K/uL (1.8-7.7); NEUTROPHILS % (AUTO) 72.2 % (42.2-75.2); PLATELET COUNT (AUTO) 213 K/uL (140-450); RED CELL DISTRIBUTION WIDTH 13.9 % (11.6-13.7)
[2023-11-08 18:28] LABS: ANION GAP 12.6 (8-16); CALCIUM 8.9 mg/dL (8.5-10.1); CARBON DIOXIDE 27.6 mmol/L (21-32); CREATININE 1.2 mg/dL (0.6-1.3); POTASSIUM 4.2 mmol/L (3.5-5.1)
[2023-11-08] MEDS ORDERED: OXYM20SP1 NS (19:18)
[2023-11-08] MEDS ORDERED: MUC600 PO (19:18)
[2023-11-08 19:24] VITALS: BP 105/52; PULSE 75; RESP 17; TEMP 98.3; O2SAT 96
== END 2023-11-08 19:43 | disposition home or self-care (01) ==
LOC: MED 15:22
DX: J06.9 Acute upper respiratory infection, unspecified (principal); I10 Essential (primary) hypertension; Z20.822 Contact with and (suspected) exposure to COVID-19; Z79.899 Other long term (current) drug therapy
CPT/HCPCS: 36415; 71045; 80048; 83880; 84484; 85025; 85379; 93005; 99285

== ENCOUNTER 2024-03-17 01:12 | Emergency (ER) | payer OTHER ==
[~2024-03-17] VITALS: Ht 175.3 cm; Wt 140.6 kg
[~2024-03-17 01:12] MED LIST changes: -BENZ150C2 PO; +BENZ150C7 PO; +MUC600 PO; +OXYM20SP1 NS
[2024-03-17 01:16] VITALS: BP 140/75; PULSE 70; RESP 22; TEMP 98; O2SAT 98
[2024-03-17 02:10] LABS: BASOPHILS # (AUTO) 0.1 K/uL (0.00-0.22); BASOPHILS % (AUTO) 0.8 % (0.0-2.0); EOSINOPHILS # (AUTO) 0.2 K/uL (0-0.4); EOSINOPHILS % (AUTO) 2.3 % (0.0-4.0); HEMATOCRIT 43.4 % (36-52); HEMOGLOBIN 14.8 g/dL (12.0-18.0); LYMPHOCYTES # (AUTO) 1.7 K/uL (2.0-11.5); LYMPHOCYTES % (AUTO) 22.3 % (20.5-51.1); MEAN CORPUSCULAR HEMOGLOBIN 29 pg (27-31); MEAN CORPUSCULAR HGB CONC 34 g/dL (33-37); MEAN CORPUSCULAR VOLUME 86.1 fL (80-94); MONOCYTES # (AUTO) 0.6 K/uL (0.8-1.0); MONOCYTES % (AUTO) 7.7 % (1.7-9.3); NEUTROPHILS % (AUTO) 66.9 % (42.2-75.2); PLATELET COUNT (AUTO) 231 K/uL (140-450); RED BLOOD CELL COUNT(AUTO) 5.04 MIL/uL (4.20-6.10); RED CELL DISTRIBUTION WIDTH 13.7 % (11.6-13.7); WHITE BLOOD COUNT (AUTO) 7.5 K/uL (4.8-10.8)
[2024-03-17 02:21] LABS: ANION GAP 7.2 (8-16); CALCIUM 10.4 mg/dL (8.5-10.1); CARBON DIOXIDE 31.8 mmol/L (21-32); CREATININE 1.1 mg/dL (0.6-1.3)
[2024-03-17] MEDS: ALUMINUM HYD/MAG/SIMETHICONE 30 ML UDC PO ONE (02:48)
[2024-03-17] MEDS: FAMOTIDINE 20 MG TAB PO ONE (02:48)
[2024-03-17] MEDS ORDERED: PANT40EC PO (03:36)
[2024-03-17] MEDS ORDERED: MAG-27 PO (03:37)
[2024-03-17 03:44] VITALS: BP 132/82; PULSE 88; RESP 18; TEMP 98; O2SAT 98
== END 2024-03-17 03:43 | disposition home or self-care (01) ==
LOC: MED 01:12
DX: R07.89 Other chest pain (principal); R05.9 Cough, unspecified; K21.9 Gastro-esophageal reflux disease without esophagitis; I10 Essential (primary) hypertension; Z79.899 Other long term (current) drug therapy
CPT/HCPCS: 36415; 71045; 80048; 84484; 85025; 93005; 99285; Q0092